=== PATIENT | female | born 1945 | race Caucasian/White ===

== ENCOUNTER → 2018-04-15 | Outpatient (CLI) | payer MEDICARE, MEDICAID ==
[~2018-04-15] MED LIST: PROHANCE 279.3MG/ML 15ML VIAL (A9576) As Ordered ONE
--- NOTE | 2018-04-24 09:49 | REP ---
MRCP: MRI abdomen without contrast. HISTORY: Dilated CBD. Comparison CT images have been retrieved from an outside institution dated September 25, 2017. This was interpreted showing somewhat dilated common bile duct with an abrupt cutoff. TECHNIQUE: Study was requested of the abdomen without and with intravenous gadolinium, in addition to MRCP exam. The patient chose to limit the exam and did not wish to continue beyond the MRCP portion of the exam. Axial and coronal T2-weighted scans were acquired along with MRCP acquisition. Maximal intensity projection images are displayed rotationally. MRCP FINDINGS: The MRCP images confirm the presence of a mildly prominent common bile duct, measuring 6-7 mm in greatest diameter. This does abruptly terminates just a centimeter or so from the medial wall of the descending duodenum. Parallel to this, is a pancreatic duct which is also slightly dilated, measuring 4 mm. This tapers and terminates at about the same level as the distal CBD. No mass lesion is visible in the pancreatic head on limited MRCP imaging. The pancreatic or small ampullary mass lesion cannot be excluded. There is no MRCP evidence of choledocholithiasis. Also noted on today's limited imaging is a prominent venous collateral in the left abdomen. This is seen on the recent CT images as well from September 25, 2017. It appears to be a collateral between the splenic vein and the inferior vena cava joining the IVC just above the iliac vein confluence. This raises a question of portal hypertension. IMPRESSION: Mildly prominent CBD, 6-7 mm, and mildly prominent adjacent and parallel main pancreatic duct, 4 mm. No definite mass lesion seen. Today's imaging limited to MRCP protocol due to patient tolerance. Consider ERCP. Also noted is a prominent venous collateral channel in the left abdomen raising question of portal hypertension. Electronically Signed by Kyle Prieto MD 04/24/2018 10:40 A
== END ==
LOC: M RAD 16:37
PROVIDERS: ATTEND Internal Medicine Gastroenterology
DX: K83.8 Other specified diseases of biliary tract (principal)
CPT/HCPCS: 74181; A9576